=== PATIENT | male | born 1970 | race Caucasian/White ===

== ENCOUNTER 2019-12-22 14:34 | Emergency (ER) | payer BC ==
--- NOTE | 2019-12-22 14:56 | EDM.PDOC ---
ED HPI GENERAL MEDICAL PROBLEM - General Chief Complaint: Laceration Stated Complaint: LT RING FINGER LAC Time Seen by Provider: 12/22/19 14:44 Source of Information: Reports: Patient, RN Notes Reviewed History Limitations: Reports: No Limitations - History of Present Illness INITIAL COMMENTS - FREE TEXT/NARRATIVE: Patient is a 49-year-old male who presents to the ED for evaluation of a left ring finger laceration. This is on the anterior aspect, on the distal finger pad. The patient was using a knife at work, and ended up cutting himself on the finger. This resulted in a curvilinear laceration actively bleeding. This is roughly 4 cm in length. He is not having any difficulties with range of motion, and can still feel touch distal to the injury. Patient denies any other sick- like symptoms, fever/chills, cough/shortness of breath, nausea/vomiting/diarrhea. He is up-to-date on his tetanus vaccine. He further notes that he is right-hand dominant. Left Finger-Ring Pain Score (Numeric/FACES): 4 - Related Data Allergies Allergy/AdvReac Type Severity Reaction Status Date / Time No Known Allergies Allergy Verified 12/22/19 14:46 Home Meds: Home Meds . [No Known Home Meds] 12/22/19 [History] Past Medical History - Past Health History Medical/Surgical History: Denies Medical/Surgical History Cardiovascular History: Reports: Hypertension Respiratory History: Reports: Sleep Apnea - Past Surgical History Musculoskeletal Surgical History: Reports: Knee Replacement Social & Family History - Family History Family Medical History: Noncontributory - Caffeine Use Caffeine Use: Reports: None ED ROS GENERAL - Review of Systems Review Of Systems: Comprehensive ROS is negative, except as noted in HPI. ED EXAM, SKIN/RASH Exam: See Below Exam Limited By: No Limitations General Appearance: Alert, WD/WN, No Apparent Distress Respiratory/Chest: No Respiratory Distress, Lungs Clear, Normal Breath Sounds, No Accessory Muscle Use, Chest Non-Tender Cardiovascular: Normal Peripheral Pulses, Regular Rate, Rhythm, No Murmur Peripheral Pulses: 2+: Radial (L), Radial (R) Extremities: Normal Range of Motion, Normal Capillary Refill Neurological: Alert, Oriented, Normal Cognition, No Motor/Sensory Deficits Psychiatric: Normal Affect, Normal Mood Skin: Warm, Dry, Normal Color, No Rash, Wound/Incision (4cm curvilinear laceration to the distal finger pad of the left ring finger.) ED SKIN PROCEDURES - Laceration/Wound Repair Left Anterior Distal Digit - 4th (Ring) Appearance: Subcutaneous, Linear (curvilinear), Clean Distal NVT: Neuro & Vascular Intact, No Tendon Injury Anesthetic Type: Local Local Anesthesia - Lidocaine (Xylocaine): 1% Plain Local Anesthetic Volume: 3cc Skin Prep: Chlorhexidine (Hibiciens), Saline Exploration/Debridement/Repair: Wound Explored, In a Bloodless Field, Explored to Base, No Foreign Material Found Closed with: Sutures Lac/Wound length In cm: 4 Suture Size: 4-0 # of Sutures: 8 Suture Type: Prolene, Interrupted, Simple Sterile Dressing Applied: Nurse Tetanus Status Addressed: Yes Complications: No Course - Vital Signs Last Recorded V/S: Last Vital Signs Temp 98.5 F 12/22/19 14:48 Pulse 81 12/22/19 14:48 Resp 18 12/22/19 14:48 BP 195/118 H 12/22/19 14:48 Pulse Ox 97 12/22/19 14:48 - Orders/Labs/Meds Meds: Medications Discontinued Medications Generic Name Dose Route Start Last Admin Trade Name Freq PRN Reason Stop Dose Admin Lidocaine HCl 10 ml 12/22/19 15:06 12/22/19 15:09 Xylocaine 1% INJECT 12/22/19 15:07 10 ml ONETIME ONE Administration Departure - Departure Time of Disposition: 14:57 Disposition: Home, Self-Care 01 Condition: Good Clinical Impression: Laceration of finger of left hand Qualifiers: Encounter type: initial encounter Finger: ring finger Damage to nail status: without damage Foreign body presence: without foreign body Qualified Code(s): S61.215A - Laceration without foreign body of left ring finger without damage to nail, initial encounter - Discharge Information *PRESCRIPTION DRUG MONITORING PROGRAM REVIEWED*: No *COPY OF PRESCRIPTION DRUG MONITORING REPORT IN PATIENT RAHUL: No Instructions: Sutures, Cuttyhunk, or Adhesive Wound Closure, [id number] Referrals: Sherif Brock Jr, MD [Primary Care Provider] - Forms: ED Department Discharge Additional Instructions: You have been evaluated in the ED for your laceration. Sutures will need to stay in for 10-14 days. You may return to the ED or any clinic for removal. Please keep this area clean and dry, you may cleanse with regular soap and water. No vigorous scrubbing. Please try to avoid submerging the affected area in water for prolonged periods of time until the sutures are removed. Watch out for signs of infection like increased redness, swelling, pain at the laceration site, or if you should develop any fevers or chills. Please return to ED if your symptoms change or worsen. Sepsis Event Note (ED) - Focused Exam Vital Signs: Vital Signs Temp Pulse Resp BP Pulse Ox 12/22/19 14:48 98.5 F 81 18 195/118 H 97
[2019-12-22 14:57] VITALS: BP 195/118; PULSE 81
[2019-12-22] MEDS ORDERED: Lidocaine 1% 10 ML MDV INJECT ONE (15:06)
== END 2019-12-22 16:10 | disposition home or self-care (01) ==
LOC: JD.ED 14:34
DX: S61.215A Laceration without foreign body of left ring finger without damage to nail, initial encounter (principal); I10 Essential (primary) hypertension; W26.0XXA Contact with knife, initial encounter; Y99.0 Civilian activity done for income or pay
CPT/HCPCS: 12002; 99282; J2001

== ENCOUNTER 2023-06-17 06:50 | Day surgery (SDC) | payer BC ==
[~2023-06-17 06:50] MED LIST: Sodium Chloride 0.9% 10 ML Syringe FLUSH PRN; Sodium Chloride 0.9% 10 ML Syringe FLUSH SCH
[2023-06-17] MEDS ORDERED: fentaNYL 100 MCG/2 ML SDV ONE (07:09)
[2023-06-17] MEDS ORDERED: Midazolam 1 MG/ML 2 ML SDV ONE (07:10)
[2023-06-17] MEDS ORDERED: Ketamine 200 MG/20 ML MDV ONE (07:10)
[2023-06-17] MEDS ORDERED: Propofol 200 MG/20 ML SDV ONE ×4 (07:13→09:16)
[2023-06-17] MEDS: Lactated Ringers 1,000 ML IV SCH (07:15)
[2023-06-17] MEDS: oxyCODONE ER 10 MG TAB.ER PO SCH (07:34)
[2023-06-17] MEDS: Acetaminophen 325 MG Tab PO SCH (07:34)
[2023-06-17] MEDS: Pregabalin 25 MG Cap PO SCH (07:34)
[2023-06-17] MEDS ORDERED: Ketorolac 15 MG/ML SDV ONE (08:25)
[2023-06-17] MEDS ORDERED: Ondansetron 4 MG/2 ML SDV ONE (08:25)
[2023-06-17] MEDS ORDERED: ceFAZolin 2 GM Vial ONE (08:32)
[2023-06-17] MEDS ORDERED: Lactated Ringers 1,000 ML IV ONE (09:15)
[2023-06-17] MEDS: Vancomycin 1 GM SDV ONE (09:35)
[2023-06-17] MEDS: Tranexamic Acid 1,000 MG/10 ML Vial ONE (09:35)
[2023-06-17] MEDS ORDERED: Ropivacaine 0.5% 5 MG/ML 30 ML SDV ONE (10:08)
[2023-06-17] MEDS: Morphine 8 MG, EPINEPHrine 0.3 MG, Cefuroxime 750 MG, Ketorolac 30 MG, Sodium Chloride ... PRN (10:35)
[2023-06-17] MEDS: oxyCODONE 5 MG Tab PO PRN (11:27)
[2023-06-17 12:33] VITALS: PULSE 60
[2023-06-17 13:25] VITALS: BP 135/78
== END 2023-06-17 13:39 | disposition home or self-care (01) ==
LOC: JD.SDS 06:50
PROVIDERS: ATTEND Orthopaedic Surgery
DX: M17.12 Unilateral primary osteoarthritis, left knee (principal); I10 Essential (primary) hypertension; G47.33 Obstructive sleep apnea (adult) (pediatric)
CPT/HCPCS: 0055T; 27447; 64447; 73560; 97110; 97161; A9270; C1713; C1776; J0171; J0690; J0697; J1885; J2250; J2270; J2405; J2704; J2795; J3010; J3370; J7120; 01402; J3490

== ENCOUNTER 2023-10-01 07:02 | Emergency (ER) | payer BC ==
[2023-10-01 07:54] VITALS: BP 167/88; PULSE 63
== END 2023-10-01 07:58 | disposition home or self-care (01) ==
LOC: JD.ED 07:02
DX: L02.416 Cutaneous abscess of left lower limb (principal); I10 Essential (primary) hypertension
CPT/HCPCS: 99283